=== PATIENT | male | born 1970 | race Caucasian/White ===

== ENCOUNTER 2017-12-28 10:02 | Emergency (ER) | payer OTHER ==
[~2017-12-28] VITALS: Ht 177.8 cm; Wt 90.7 kg
[2017-12-28] MEDS ORDERED: BACTRIM DS TAB1 EACH PO (10:55)
[2017-12-28] MEDS ORDERED: KEFLEX500 M1 PO (10:55)
[2017-12-28 11:01] VITALS: BP 150/85
== END 2017-12-28 11:01 | disposition home or self-care (01) ==
LOC: M.ERS 10:02
DX: L02.211 Cutaneous abscess of abdominal wall (principal); L03.311 Cellulitis of abdominal wall